=== PATIENT | male | born 1965 | race Caucasian/White ===

== ENCOUNTER 2018-04-29 06:03 | Observation (INO) | payer OTHER ==
[2018-04-28 11:02] VITALS: BMI 29.9
[2018-04-29] MEDS ORDERED: Bupivacaine HCl 0.5%/Epinephrine 1:200,000/PF 30 ml Vial ONE (06:17)
[2018-04-29] MEDS ORDERED: Thrombin 5000 UNITS/5 ML VIAL ONE (06:17)
[2018-04-29] MEDS ORDERED: Sodium Chloride 0.9% 20 ML ONE (06:17)
[2018-04-29] MEDS ORDERED: CEFAZOLIN/Water 2 GM/20 ML SYRINGE ONE ×2 (06:50→16:04)
[2018-04-29] MEDS ORDERED: Midazolam HCl 2 mg/2 ml Vial ONE ×2 (06:57→07:01)
[2018-04-29] MEDS ORDERED: Midazolam HCl 2 mg/ml Syrup 5 ml UD Cup ONE (06:57)
[2018-04-29] MEDS ORDERED: Fentanyl 100 MCG/2 ML VIAL ONE ×4 (07:01→12:50)
[2018-04-29] MEDS ORDERED: HYDROmorphone 2 MG/ML VIAL ONE (11:23)
--- NOTE | 2018-04-29 11:28 | OP ---
DATE OF PROCEDURE: 04/29/2018 SURGEON: Latrice Dowd M.D. WEB PRESS OPERATOR ASSISTANT: Rosa Looney PA-C PREOPERATIVE INDICATION: Treat pain, prevent neurological deterioration. PREOPERATIVE DIAGNOSES: L5-L6 (transitional segment) foraminal stenosis from intervertebral disk col lapse and spondylolisthesis. POSTOPERATIVE DIAGNOSIS: L5-L6 (transitional segment) foraminal stenosis from intervertebral disk co llapse and spondylolisthesis. OPERATIVE PROCEDURE: Decompressive laminectomy, facetectomy, wide foraminotomies L5-L6 for treatment of radiculopathy, transforaminal lumbar interbody arthrodesis L5-L6, pedicle screw and pamela instrumen tation L5-L6, posterolateral arthrodesis L5-L6, both local morselized autograft, morselized Allograft . PREOPERATIVE MEDICATION: Ancef 2 grams IV. DRAIN NUMBER: Zero. DRAIN TYPE: None. OPERATIVE DICTATION: The patient was brought to the operating room. General endotracheal anesthesia was induced. The patient was positioned prone on the George frame with appropriate padding for the chest and hips. A lateral fluoro radiograph was used to plan our incision. The lumbar skin was alia rilely prepped and draped. We opened a midline incision with a 10 blade knife and controlled bleedin g with bipolar and monopolar cautery. We used monopolar cautery to dissect through subcutaneous tiss ues to the thoracodorsal fascia. We incised the fascia in the midline and reflected the paraspinal m uscles off the spinous process and lamina of L5 and L6. The patient had a transitional segment at L6 which could also be called S0. After the lateral fluoro radiograph confirmed the levels upon which were operating, we then carried our dissection over the L4-5 and L5-L6 facet joints to identify the t ransverse processes of L5 and L6 bilaterally. We irrigated copiously with bacitracin irrigation. We then used Adson and Kerrison rongeurs to fashion a laminectomy at L5 and the top of L6. We widened our laminectomy defect until we were flush with the pedicles. We then turned our attention to both f oramina. These were significantly compressed from the listhesis and the collapse of the intervertebr al disk. We performed wide foraminotomies of the exiting L5 nerve roots. In fact in order to compre ss the nerve root on the left side adequately we had to take out the entire facet joint and used fora minotomy Kerrisons laterally. We had to reduce lateral osteophyte back into the disk space and sweep them medially under the nerve to remove them. Finally a Peralta ball probe could pass easily through the foramen along with the nerve without compression. We turned our attention to arthrodesis after this decompression was secured. Through the foramen on the left at L5-L6 we then incised the interspace. We emptied disk contents us ing curettes and rongeurs. We prepared the endplates for grafting with curettes. We measured the he ight of the interspace with a bone rasp. This measured 8 mm. An 8 mm PEEK intervertebral graft was brought into the field. Our laminectomy bone was carefully morselized on the back table after all so ft tissue was removed from it. The morselized bone was added to demineralized bone matrix as our fus ion substrate. A PEEK graft was packed with this fusion substrate and advanced into the interspace u nder radiographic guidance to the appropriate depth. We turned our attention to pedicle screw instru mentation. Using bony anatomic landmarks, palpation of the medial portion of the pedicles, and our lateral fluor o radiograph as our guide, we chose entry points for pedicle screws. Using high speed drill to drill these entry points and then a bone awl to advance into the pedicles into the vertebral body. A tap was used to widen the trajectories and a ball probe confirmed they were completely encased in bone. We placed pedicle screws at L5 and L6 bilaterally. A 360 degree image set was generated with our iso centric C-arm confirming adequate position of our pedicle screw instrumentation. We then irrigated c opiously with bacitracin irrigation. With a high-speed drill, we decorticated the L5 and L6 transver se processes and over the decorticated bone we left demineralized bone matrix and morselized autograf t as are posterolateral fusion substrate. We then brought rods down to the screw heads and tightened caps over the rods. Before final tightening we compressed across the interspace to keep our interbo dy graft in place. Using a dnjucx-wnpelxr-eibwsl mechanism, we ensured adequate tightness. We widen ed our foraminotomies with a foraminotomy Kerrison. After this compression was applied until a Pollo y ball probe could easily pass all the way out the foramen into the paraspinal space without compress ion. We irrigated the center of the wound one last time with bacitracin irrigation. We treated the wound with vancomycin powder. We closed the wound in anatomic layers and we applied a sterile dressi ng. This was a clean case and no contamination.
[2018-04-29 13:04] LABS: INR-International Normal Ratio 0.9; Prothrombin Time 12.5 SEC (12.0-14.7)
[2018-04-29 14:12] LABS: Red Blood Cell (RBC) Count 4.69 mill/uL (4.70-6.10); White Blood Cell (WBC) Count 10.6 thou/uL (4.8-10.8)
[2018-04-29 14:13] LABS: Hemoglobin 15.7 g/dL (14.0-18.0); Mean Corpuscular HGB CONC 34.2 g/dL (32.0-36.0); Mean Corpuscular Hemoglobin 33.4 pg (27.0-31.0); Mean Corpuscular Volume 97.9 fL (78.0-98.0)
[2018-04-29 14:14] LABS: Mean Platelet Volume 8.8 fL (7.4-10.4); Platelet Count 266 thou/uL (130-400); RBC Distribution Width 13.6 % (11.5-14.5)
[2018-04-29] MEDS ORDERED: HYDROcodone/Acetaminophen 5/325 mg Tablet ONE (14:50)
[2018-04-29] MEDS ORDERED: Milk Of Magnesia 30 ML UDCUP PO PRN (16:18)
[2018-04-29] MEDS ORDERED: Ondansetron HCl/PF 4 MG/2 ML Vial IM PRN (16:18)
[2018-04-29] MEDS ORDERED: Mag-Al 1200 mg/1200 mg/30 ML UDCUP PO PRN (16:18)
[2018-04-29] MEDS ORDERED: Bisacodyl 10 MG SUPP PR PRN (16:18)
[2018-04-29] MEDS ORDERED: Acetaminophen 325 MG TAB PO PRN (16:18)
[2018-04-29] MEDS ORDERED: Promethazine 25 MG TAB PO PRN (16:18)
[2018-04-29] MEDS ORDERED: Acetaminophen 650 MG Suppository PR PRN (16:18)
[2018-04-29] MEDS ORDERED: Meperidine HCl/PF 25 MG/ML VIAL SLOW IVP PRN (16:18)
[2018-04-29] MEDS ORDERED: Acetaminophen/Codeine 30-300mg Tablet PO PRN (16:18)
[2018-04-29] MEDS ORDERED: Promethazine HCl 25 MG/ML VIAL IM PRN (16:18)
[2018-04-29] MEDS ORDERED: Scopolamine 1.5 mg/72 hour Patch TD PRN (16:18)
[2018-04-29] MEDS ORDERED: Promethazine HCl 12.5 MG SUPP PR PRN (16:18)
[2018-04-29] MEDS ORDERED: traMADol HCl 50 MG TAB PO PRN (16:18)
[2018-04-29] MEDS ORDERED: Morphine 4 MG/ML Carpuject SLOW IVP PRN (16:18)
[2018-04-29] MEDS ORDERED: diphenhydrAMINE 50 MG/ML VIAL IVP PRN (16:18)
[2018-04-29] MEDS ORDERED: Prochlorperazine 10 MG/2 ML VIAL IM PRN (16:18)
[2018-04-29] MEDS ORDERED: Zolpidem Tartrate 5 MG TAB PO PRN (16:18)
[2018-04-29] MEDS ORDERED: diphenhydrAMINE 25 MG CAP PO PRN (16:18)
[2018-04-29] MEDS ORDERED: Morphine 4 MG/ML VIAL SLOW IVP PRN (16:45)
[2018-04-29] MEDS: traMADol HCl 50 MG TAB PO PRN (20:24)
[2018-04-29] MEDS: Sodium Chloride 0.9% 1,000 ML IV SCH (20:29)
[2018-04-29] MEDS: tiZANidine HCl 4 MG TAB PO PRN (23:12)
[2018-04-29] MEDS: Acetaminophen/Codeine 30-300mg Tablet PO PRN (23:15)
[2018-04-29] MEDS ORDERED: CEFAZOLIN/Water 2 GM/20 ML SYRINGE SLOW IVP SCH (23:59)
[2018-04-30] MEDS: Sodium Chloride 0.9% 1,000 ML IV SCH (02:33)
[2018-04-30 04:13] VITALS: TEMP 98.1
[2018-04-30] MEDS: tiZANidine HCl 4 MG TAB PO PRN (07:37)
[2018-04-30] MEDS: Acetaminophen/Codeine 30-300mg Tablet PO PRN ×2 (07:38→11:45)
[2018-04-30] MEDS ORDERED: Escitalopram Oxalate 10 mg Tablet PO SCH (09:00)
[2018-04-30] MEDS ORDERED: Tamsulosin HCl 0.4 MG CAP PO SCH (09:00)
[2018-04-30] MEDS ORDERED: Bupropion 150 MG XL TAB PO SCH (09:00)
[2018-04-30] MEDS: traMADol HCl 50 MG TAB PO PRN (09:16)
--- NOTE | 2018-04-30 09:46 | PRG ---
DATE OF SERVICE: 04/30/2018 Heron Layne is 1 day out from decompression fusion at the lumbosacral segment (he had a transitional s egment sometimes called L6). Mr. Layne notices that his back is a little more sore this morning than yesterday owing to the wearing off of his local anesthetic. He has good neurological function in low er extremities and was ambulatory yesterday. He wants to get out of the hospital as soon as possible . He does note that the anterior portion of his thigh is a bit numb from positioning on the operatin g table and that he had some pain over the greater trochanteric bursa on both sides. Vital signs are stable and the neurological examination is good. I am going to ask physical therapy to work with him on stretching this morning before lunch. If he i s safe for his activities of daily living by lunch time he can be discharged. He can have a dressing on his wound if it is draining in order to keep his clothes clean, but he does not require a dressin g. Showers can start tomorrow evening, but he should not submerge the incision. We went over activi ty restrictions and followup arrangements as well.
[2018-04-30 11:54] VITALS: BP 106/68
--- NOTE | 2018-05-01 14:26 | HP ---
HISTORY OF PRESENT ILLNESS: Mr. Layne is a 52-year-old male who presents with low back pain and pain in the left greater than right L4 and L5 dermatomes. He has had this pain and numbness since 06/2017 that came on spontaneously. He has good strength in the bilateral lower extremity, but there is ester n and paresthesia. The pain is shooting in nature and gets worse with walking and standing for a jose luis g time. He gets instant relief from sitting down and bending forward. He has had no physical therap y for the lumbar spine, but has had to L4-S1 ELIZABETH with Dr. Palomino. The injections did not give any perm anent relief. He has had to make activity modifications, daily because of his back pain and leg pain . The patient has had to make activity modifications. Has been missing work due to his back and leg pain. REVIEW OF SYSTEMS: A 10-point review of systems has been completed and is negative other than stated above in the HPI. PAST MEDICAL HISTORY: Hypertension, low back pain. PAST SURGICAL HISTORY: Left foot surgery when he was 46, a cyst removal when he was 52. FAMILY HISTORY: Noncontributory. SOCIAL HISTORY: The patient is a current smoker, 1 pack a day. 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 MEDICATIONS: Oxycodone, gabapentin, lisinopril, esomeprazole, trazodone. ALLERGIES: No known drug allergies. PHYSICAL EXAMINATION: HEENT: Ears, nose, throat, mouth, head; normocephalic, atraumatic. Hearing is intact. Moist mucous membranes intact. NECK: Trachea is midline. No masses are noted. EYES: Pupils are equal, round, reactive to light. Extraocular movements are intact. Sclerae is not injected, nonicteric. PSYCHIATRIC: Normal mood and affect. CARDIOVASCULAR/PULMONARY: No cyanosis, clubbing noted. Normal pedal pulses bilaterally. RESPIRATORY: Even respirations, normal work of breathing room air, normal symmetrical chest rise. MUSCULOSKELETAL: Lower extremities, 5/5 strength in bilateral iliopsoas, quadriceps, hamstrings, rig ht EA and EHL. Sensory defects bilateral left greater than right in the L4 and L5 dermatomes. Tende r to palpate the midline lumbar spine. NEUROLOGIC: The patient is awake, alert, and oriented. Cranial nerves II-XII are grossly intact. S peech is fluent. Answers questions appropriately. ____ gait and station. IMAGING: MRI transitional segment, L5-6 foraminal stenosis, L5 root compression. ASSESSMENT AND PLAN: Disk degeneration, lumbar sacral region radiculopathy. Dr. Dowd has offered L5-S1 TLIFT with wide facetectomy. Informed consent: We have discussed medication risks, benefits, alternatives, and expected results f rom surgery. The risks discussed included, but were not limited to bleeding, infection, CSF leak, ne rve damage, weakness, incontinence, cauda equina injury, arachnoiditis, paralysis, ventilator depende nce, wheelchair dependence, loss of vision, hardware misplacement, cardiopulmonary complications of a nesthesia or . Long-term complications discussed included, but were not limited to degradation of surrounding tissue and the need for further surgery. Patient states he understands the risks and is willing to proceed with surgery.
== END 2018-04-30 12:32 | disposition home or self-care (01) ==
LOC: SURG A 06:03 → UNDOADMOB 06:03 → INTOOBSV 06:03 → SURG A 17:47 → UNDODISOB 04-30 12:32
PROVIDERS: ADMIT Neurological Surgery; ATTEND Neurological Surgery
PROC: 0SG00AJ Fusion of Lumbar Vertebral Joint with Interbody Fusion Device, Posterior Approach, Anterior Column, Open Approach (ICD-10-PCS; principal; 2018-04-29)
DX: M48.061 Spinal stenosis, lumbar region without neurogenic claudication (principal); M43.16 Spondylolisthesis, lumbar region; M51.16 Intervertebral disc disorders with radiculopathy, lumbar region; I10 Essential (primary) hypertension; F17.210 Nicotine dependence, cigarettes, uncomplicated; Z79.899 Other long term (current) drug therapy
CPT/HCPCS: 76001; 85027; 85610; 96361; 96374; 96375; 96376; A4216; C1713; C1768; G0378; J0670; J1170; J2250; J3010; J3370; J3490